=== PATIENT | male | born 1950 | race American Indian/Alaskan Native ===

== ENCOUNTER 2019-06-14 10:33 | Emergency (ER) | payer BC, MEDICARE ==
[2019-06-14] MEDS ORDERED: ZOFRAN IV ONE (11:11)
[2019-06-14] MEDS ORDERED: MORPHINE IV ONE ×2 (11:11→13:29)
--- NOTE | 2019-06-14 11:15 | Emergency Department Report ---
ED Male HPI - General Chief complaint: Urogenital-Male Stated complaint: TESTICLES SWELLING/PAIN Time Seen by Provider: 06/14/19 11:03 Source: patient Mode of arrival: Ambulatory Limitations: No Limitations - History of Present Illness Initial comments: 68-year-old male presents to ED with right testicular pain. Patient reports history of right sided hydrocele with baseline swelling in the right scrotum, and right inguinal hernia repair. Patient states 2 days ago he began having increased swelling and pain in the right testicle. Patient reports mild abdominal pain and fever. Reports one episode of vomiting this morning. Patient was seen by his urologist and advised to come to the emergency room. Urologist: Dr Manuelito CAMACHO Complaint: testicle pain, testicle swelling -: days(s) (2) Location: right testicle Radiation: none Severity: moderate Quality: aching Consistency: constant Improves with: none Worsens with: palpation swelling, fever, nausea/vomiting. denies: discharge - Related Data Home Medications Medication Instructions Recorded Confirmed Last Taken Tamsulosin [Flomax] 0.4 mg PO QDAY 06/14/19 06/14/19 06/11/19 Previous Rx's Medication Instructions Recorded Last Taken Type HYDROcodone/APAP 5-325 [Meherrin 1 each PO Q6HR PRN #10 tablet 06/14/19 Unknown Rx 5/325] levoFLOXacin [Levaquin TAB] 500 mg PO QDAY 9 Days #9 tablet 06/14/19 Unknown Rx Allergies Allergy/AdvReac Type Severity Reaction Status Date / Time doxycycline Allergy Bleeding Verified 06/14/19 10:48 Sulfa (Sulfonamide Allergy Vomiting Verified 06/14/19 10:48 Antibiotics) ED Review of Systems ROS: Stated complaint: TESTICLES SWELLING/PAIN Other details as noted in HPI Comment: All other systems reviewed and negative Constitutional: fever Gastrointestinal: abdominal pain, vomiting Genitourinary: testicular pain. denies: dysuria, hematuria ED Past Medical Hx - Past Medical History Previous Medical History?: No - Surgical History Past Surgical History?: Yes Additional Surgical History: Hernia repari - Social History Smoking Status: Never Smoker Substance Use Type: None - Medications Home Medications: Home Medications Medication Instructions Recorded Confirmed Last Taken Type HYDROcodone/APAP 5-325 [Meherrin 1 each PO Q6HR PRN #10 tablet 06/14/19 Unknown Rx 5/325] Tamsulosin [Flomax] 0.4 mg PO QDAY 06/14/19 06/14/19 06/11/19 History levoFLOXacin [Levaquin TAB] 500 mg PO QDAY 9 Days #9 tablet 06/14/19 Unknown Rx ED Physical Exam - General Limitations: No Limitations General appearance: alert, in no apparent distress - Head Head exam: Present: atraumatic, normocephalic - Eye Eye exam: Present: normal appearance - ENT ENT exam: Present: mucous membranes moist - Neck Neck exam: Present: normal inspection - Respiratory Respiratory exam: Present: normal lung sounds bilaterally. Absent: respiratory distress - Cardiovascular Cardiovascular Exam: Present: regular rate, normal rhythm - GI/Abdominal GI/Abdominal exam: Present: soft, tenderness (mild suprapubic tenderness present). Absent: distended - exam: Present: testicular tenderness, scrotal swelling (right-sided). Absent: urethral discharge External exam: Present: other (no evidence of Bam's gangrene). Absent: lesions, lacerations, ecchymosis, bleeding - Extremities Exam Extremities exam: Present: normal inspection - Neurological Exam Neurological exam: Present: alert, oriented X3 - Psychiatric Psychiatric exam: Present: normal affect, normal mood - Skin Skin exam: Present: warm, dry, intact, normal color. Absent: rash ED Course Vital Signs 06/14/19 06/14/19 06/14/19 10:41 11:21 12:26 Temperature 97.9 F Pulse Rate 91 H 87 Respiratory 19 20 18 Rate Blood Pressure 185/104 Blood Pressure 174/96 [Left] O2 Sat by Pulse 94 93 Oximetry 06/14/19 13:51 Temperature Pulse Rate Respiratory 16 Rate Blood Pressure Blood Pressure [Left] O2 Sat by Pulse Oximetry - Consultations Consultation #1: 06/14/19 11:23 Spoke w/ Dr Billings. States pt presented as walk-in this AM for testicular pain. Sent pt to ED for further workup. Thinks possible orchitis. 06/14/19 14:10 Spoke again w/ Dr Billings. Ok w/ levaquin regimen. Pt to f/u in office. ED Medical Decision Making - Lab Data Result diagrams: 06/14/19 11:17 06/14/19 11:17 - Radiology Data Radiology results: report reviewed, image reviewed - Medical Decision Making 68-year-old male with right-sided epididymitis. Patient has WBCs of 18, afebrile, not tachycardic or hypotensive. No evidence of Bam's gangrene on exam. Patient given a prescription for Levaquin, will follow up with urology. Return precautions given. - Differential Diagnosis hernia, hydrocele, orchitis, epidydimitis Critical care attestation.: If time is entered above; I have spent that time in minutes in the direct care of this critically ill patient, excluding procedure time. ED Disposition Clinical Impression: Acute epididymitis Disposition: - TO HOME OR SELFCARE Is pt being admited?: No Condition: Stable Instructions: Epididymitis (ED) Prescriptions: levoFLOXacin [Levaquin TAB] 500 mg PO QDAY 9 Days #9 tablet HYDROcodone/APAP 5-325 [Meherrin 5/325] 1 each PO Q6HR PRN #10 tablet PRN Reason: Pain Referrals: DOMINGUEZ WANG MD [Primary Care Provider] - 3-5 Days PANCHITO BILLINGS MD [Staff Physician] - 3-5 Days Time of Disposition: 14:10
[2019-06-14 11:52] LABS: Basophils # (Auto) 0.1 K/mm3 (0.0-0.1); Basophils % (Auto) 0.5 % (0.0-1.8); Eosinophils % (Auto) 0.1 % (0.0-4.3); Hematocrit 44.9 % (35.5-45.6); Hemoglobin 15.3 gm/dl (11.8-15.2); Lymphocytes # (Auto) 1.5 K/mm3 (1.2-5.4); Lymphocytes % (Auto) 8.2 % (13.4-35.0); Mean Corpuscular HGB Conc 34 % (32-34); Mean Corpuscular Volume 87 fl (84-94); Monocytes % (Auto) 5.7 % (0.0-7.3); Platelet Count 361 K/mm3 (140-440); Red Blood Count 5.17 M/mm3 (3.65-5.03); Red Cell Distribution Width 14.6 % (13.2-15.2)
[2019-06-14 11:59] LABS: BUN/Creatinine Ratio 13; Blood Urea Nitrogen 10 mg/dL (9-20); Hemolysis Index 14
[2019-06-14 12:26] VITALS: BP 174/96
--- NOTE | 2019-06-14 12:32 | Ultrasound Report ---
SCROTAL ULTRASOUND WITH DOPPLER HISTORY: right testicular pain, swelling COMPARISON: None. TECHNIQUE: Grayscale, color and spectral Doppler images were obtained of the scrotum. FINDINGS: RIGHT: Right testicle: No significant abnormality. No mass. Right testicular size: 3.3 x 3.2 x 3.3 cm. Right epididymis: The right epididymis is thickened and heterogeneous with increased vascularity is LEFT: Left testicle: No significant abnormality. No mass. Left testicular size: 4.3 x 2.4 x 3.5 cm. Left epididymis: 6 mm epididymal head cyst, otherwise, unremarkable Additional findings: There is a moderate uncomplicated right pleural hydrocele. No significant left h ydrocele. No varicocele. Spectral Doppler waveforms demonstrate arterial flow to both testicles. IMPRESSION: Findings consistent with right epididymitis. Moderate right hydrocele. Left epididymal head cyst. Signer Name: Guerrero Covington Jr, MD Signed: 06/14/2019 12:27 PM Workstation Name: [id number]
[2019-06-14] MEDS ORDERED: LEVAQUIN PO ONE (12:50)
[2019-06-14 14:36] LABS: Bacteria,Urine 2+ /HPF (Negative); Bilirubin,Urine NEG (Negative); Blood,Urine LG (Negative); Color,Urine Yellow (Yellow); Mucus,Urine 1+ /HPF; Urobilinogen,Urine < 2.0 mg/dL (<2.0)
[2019-06-14 14:37] LABS: RBC,Urine > 182.0 /HPF (0.0-6.0); WBC,Urine > 182.0 /HPF (0.0-6.0)
== END 2019-06-14 15:46 | disposition home or self-care (01) ==
LOC: ED 10:33
DX: N45.1 Epididymitis (principal); Z87.19 Personal history of other diseases of the digestive system; Z79.899 Other long term (current) drug therapy; Z88.8 Allergy status to other drugs, medicaments and biological substances; Z88.2 Allergy status to sulfonamides
CPT/HCPCS: 36415; 80048; 81001; 85025; 93975; 96374; 96375; 96376; 99284; J2270; J2405